=== PATIENT | female | born 1940 | race Caucasian/White ===

== ENCOUNTER 2020-03-17 08:26 | Observation (INO) ==
--- NOTE | 2020-02-17 15:07 | PAT Medication Instructions ---
Medication Instructions Date of Service February 17, 2020 Home Medications Medication Instructions Recorded diclofenac sodium 75 mg 75 mg PO BID PRN #60 tab 10/17/19 tablet,delayed release amlodipine 5 mg-benazepril 20 mg capsule 1 cap PO QAM aspirin 81 mg tablet,delayed release 81 mg PO QAM diclofenac sodium 75 mg tablet,delayed release 75 mg PO BID PRN lactobacillus combination no.9 4 billion cell capsule 4,000 mmu cells PO QPM levothyroxine 88 mcg capsule 88 mcg PO QAM multivitamin 1 tab PO QAM omeprazole 20 mg tablet,delayed release 20 mg PO QAM simvastatin 20 mg tablet 20 mg PO QPM zolpidem 5 mg tablet 2.5 mg PO HS PRN calcium carbonate [Calcium 600] 600 mg PO QAM fish oil-dha-epa 1 dose PO QAM ASK your surgeon for instructions diclofenac sodium 75 mg tablet,delayed release 75 mg PO BID PRN STOP taking 2 weeks before surgery If surgery is within 2 weeks, stop taking as soon as possible. fish oil-dha-epa 1 dose PO QAM DO NOT take the morning of surgery amlodipine 5 mg-benazepril 20 mg capsule 1 cap PO QAM multivitamin 1 tab PO QAM calcium carbonate [Calcium 600] 600 mg PO QAM Take morning of surgery With a small sip of water, OTHERWISE NOTHING TO EAT OR DRINK AFTER MIDNIGHT: aspirin 81 mg tablet,delayed release 81 mg PO QAM levothyroxine 88 mcg capsule 88 mcg PO QAM omeprazole 20 mg tablet,delayed release 20 mg PO QAM Take evening before surgery lactobacillus combination no.9 4 billion cell capsule 4,000 mmu cells PO QPM simvastatin 20 mg tablet 20 mg PO QPM zolpidem 5 mg tablet 2.5 mg PO HS PRN (if needed) Other Notes If you have any questions please call us at [phone] or [phone] or [phone] or [phone]
--- NOTE | 2020-02-18 10:46 | Anesthesiology Consultation ---
Date of Service February 18, 2020 Assessment & Plan (1) Encounter for pre-operative examination: COVID Status: As of 02/17 assessment, patient denies travel to endemic area, known exposure/sick contacts, or symptoms of COVID19. Patient instructed that they and their household members must follow strict social distancing guidelines, wear a mask in public and avoid travel for 14 days prior to surgery. Preoperative COVID19 testing to be completed prior to surgery per surgeon's a rrangements. Patient made aware to self-isolate as much as possible between COVID testing and surgery. Chart Review Chart Review: Acceptable Risk for Surgery (pending chest CT being arranged by surgeon) and Patient seen in Pre Admission Testing Teaching & Discussion Instructed NPO after midnight before surgery, except medications with 15 cc of water. Medication instructions provided according to the PAT guidelines. History Surgery Operation Date: 03/17/20 11:00 Proposed Procedures p Right Total Knee Arthroplasty - Abdelrahman Waddell MD Height/Weight Height: 5 ft 1 in Weight: 80.7 kg Allergies Allergy/AdvReac Type Severity Reaction Status Date / Time pollen extracts Allergy Unknown COUGHING Verified 02/11/20 10:20 SINUS ISSUES Medications Home Medications Medication Instructions Recorded Confirmed Last Taken amlodipine 5 mg-benazepril 20 mg 1 cap PO QAM 10/17/19 02/11/20 Unknown capsule aspirin 81 mg tablet,delayed 81 mg PO QAM 10/17/19 02/11/20 Unknown release diclofenac sodium 75 mg 75 mg PO BID PRN #60 tab 10/17/19 02/11/20 Unknown tablet,delayed release lactobacillus combination no.9 4 4,000 mmu cells PO QPM 10/17/19 02/11/20 Unknown billion cell capsule levothyroxine 88 mcg capsule 88 mcg PO QAM 10/17/19 02/11/20 Unknown multivitamin 1 tab PO QAM 10/17/19 02/11/20 Unknown omeprazole 20 mg tablet,delayed 20 mg PO QAM 10/17/19 02/11/20 Unknown release simvastatin 20 mg tablet 20 mg PO QPM 10/17/19 02/11/20 Unknown zolpidem 5 mg tablet 2.5 mg PO HS PRN tab 10/17/19 02/11/20 Unknown calcium carbonate [Calcium 600] 600 mg PO QAM 02/11/20 02/11/20 Unknown fish oil-dha-epa 1 dose PO QAM 02/11/20 02/11/20 Unknown Past Medical History Medical History Degenerative disc disease, lumbar GERD (gastroesophageal reflux disease) HTN (hypertension) Hyperlipemia Hypothyroidism Low back pain Osteoarthritis Right knee DJD Spinal stenosis of lumbar region Urinary leakage Exercise / Class Metabolic Activity II 4-5 Yardwork/Stairs/Walk up hill (Does stairs at home, just slowly, denies CP or SOB with 1 FOS) Past Family History Family History Other No family history of adverse response to anesthesia Past Surgical History Surgical History History of cholecystectomy History of colonoscopy History of left knee replacement History of salpingo-oophorectomy unilateral Hx of cataract surgery Hx of tonsillectomy Past Anesthesia History No Hx of Anesthesia Complications and No Family Hx of Anesthesia Complications History of PONV No Hx of PONV and No Hx of Motion Sickness Social History Smoking Status: Never smoker Do You Dip or Chew Tobacco: No Hx Alcohol Use: Yes alcohol intake frequency: holidays/special occasions only Hx Substance Use: No substance use type: does not use Review of Systems Pt denies any recent chest pain, shortness of breath, palpitations, fever, URI, or uncontrolled acid reflux. +sinus drainage, chronic x 15 yrs with mild reflexive cough/throat clearing Physical Exam Vital Signs BP: 144/84 P: 81bpm SPO2: 98% RA T: 98.2 F R: 16 ENMT Mouth: + dentition abnormality (missing one) and + dentures (partial upper); no chipped teeth and no loose teeth Thyromental Distance: > or= 3.5 Finger Breadths Mallampati Class: III Mouth / Teeth: 1. missing Neck normal visual inspection; neck extension not limited Respiratory normal respiratory effort Auscultation: lungs clear to auscultation bilaterally Cardiovascular Rate/Rhythm: regular rate and regular rhythm Heart Sounds: no murmur Vessels: no carotid bruit Extremities: no edema Testing Laboratory Results 02/18/20 10:54 02/18/20 12:05 PT 10.9 Seconds (9.0-12.0) 02/18/20 10:54 INR 1.0 (0.9-1.1) 02/18/20 10:54 APTT 29.6 Seconds (21.0-31.0) 02/18/20 10:54 Blood Type O Positive 02/18/20 10:54 Antibody Screen NEGATIVE 02/18/20 10:54 Electrocardiogram Date: 07/23/19 Findings: + NSR @ (66bpm) Chest X-Ray Date: 02/18/20 FINDINGS: No pneumothorax. No pleural effusions. The heart is top normal in size. Mild diffuse interstitial thickening which is likely chronic. Mild emphysema. The questionable 1 cm irregular density within the left lung apex overlying the left scapula. Otherwise, no focal lung consolidations to suggest pneumonia. No evidence for pulmonary edema. IMPRESSION: 1. No acute process within the chest. 2. A questionable 1 cm focal irregular density within the left lung apex. This could be due to the overlying scapula. However, follow-up nonemergent chest CT is recommended to exclude a pulmonary lesion. *Surgeon's office aware, arranging follow-up chest CT.
--- NOTE | 2020-02-18 11:48 | XRay Report ---
XR chest Pre-admission PA/Lat HISTORY: Preop. COMPARISON: None. FINDINGS: No pneumothorax. No pleural effusions. The heart is top normal in size. Mild diffuse inters titial thickening which is likely chronic. Mild emphysema. The questionable 1 cm irregular density wi thin the left lung apex overlying the left scapula. Otherwise, no focal lung consolidations to sugges t pneumonia. No evidence for pulmonary edema. IMPRESSION: 1. No acute process within the chest. 2. A questionable 1 cm focal irregular density within the left lung apex. This could be due to the ov erlying scapula. However, follow-up nonemergent chest CT is recommended to exclude a pulmonary lesion . ACT 112: Positive. There are findings on this exam that require communication between the performing entity and the patient following Patient Test Result Information Act ([place] Act 112) guidelines. Electronically signed by: Valdez Ibarra M.D. 02/18/2020 11:47 AM
[2020-02-18 12:40] LABS: Basophils # (auto) 0.06 K/uL (0-0.2); Basophils % (auto) 0.8 %; Eosinophils # (auto) 0.28 K/uL (0-0.5); Eosinophils % (auto) 3.9 %; Hematocrit (blood only) 36.9 % (37-47); Hemoglobin 12.4 g/dL (12.0-16.0); Immature Granulocytes # (auto) 0.01 K/uL (0.00-0.02); Immature Granulocytes % (auto) 0.1 %; Lymphocytes # (auto) 1.35 K/uL (1.2-3.4); Lymphocytes % (auto) 18.6 %; Mean Corpuscular Hgb Conc 33.6 g/dL (32-36); Mean Corpuscular Volume 89.1 fL (80-100); Mean Platelet Volume 9.1 fL (7.4-10.4); Monocytes % (auto) 8.3 %; Neutrophils # (auto) 4.96 K/uL (1.4-6.5); Neutrophils % (auto) 68.3 %; Platelet Count 331 K/uL (130-400); RDW Coefficient of Variation 14.2 % (11.5-14.5); RDW Standard Deviation 46.8 fL (36.4-46.3); Red Blood Count 4.14 M/uL (4.2-5.4); White Blood Count 7.26 K/uL (4.8-10.8)
[2020-02-18 12:50] LABS: Partial Thromboplastin Ratio 1.1; Partial Thromboplastin Time 29.6 Seconds (21.0-31.0); Prothrombin Time 10.9 Seconds (9.0-12.0)
[2020-02-18 12:53] LABS: BUN Creatinine Ratio 13.2 (10-20); Calcium 8.7 mg/dl (8.5-10.1); Est GFR (African American) 93.6; Est GFR (Non-African American) 80.8; Potassium 4.3 mmol/L (3.5-5.1)
[2020-02-18 13:01] LABS: C Reactive Protein 0.4 mg/dl (0-0.29)
--- NOTE | 2020-03-10 19:36 | History and Physical Report ---
DATE OF ADMISSION: 03/17/2020 CHIEF COMPLAINT: Persistent right knee pain and discomfort. HISTORY OF PRESENT ILLNESS: The patient is a 79-year-old white female who presents for followup and treatment of her right knee primarily. She is now 2 years out from left knee replacement, has done well from this side. She continues to have aches and pains and discomfort in her right knee. Pain is mostly medial. She had shots in her other knee, but they have not helped this knee much at all. She has just been trying to put this off. The more she walks, the more it hurts. She limps more as the day goes on. She has nighttime pain. She is not interested in further conservative care and would like to have her right knee replaced. PAST MEDICAL HISTORY: Significant for, 1. Hypothyroidism. 2. Gastroesophageal reflux disease. 3. Low back pain. PAST SURGICAL HISTORY: Includes, 1. Cholecystectomy. 2. Left knee replacement done on 09/14/2017. 3. Ruptured ectopic in . CURRENT MEDICINES: Include, 1. Amlodipine/benazepril 5/20 once a day. 2. Diclofenac 75 mg. 3. Danielle aspirin. 4. Simvastatin. 5. Omeprazole 20 mg. 6. Levothyroxine 88 mcg a day. 7. Multivitamin. 8. Calcium. 9. Probiotics. SOCIAL HISTORY: Significant for a 79-year-old female. She does not smoke. No significant alcohol intake. Lives in [place]. FAMILY HISTORY: Noncontributory. REVIEW OF HISTORY: Negative for diabetes, neurologic problem, vascular problems or bleeding disorders. Denies any chest pain or shortness of breath. No history of DVT or PE. No known bleeding problems. PHYSICAL EXAMINATION GENERAL: Shows a pleasant elderly female. Looks to be in good health. HEENT: Benign. NECK: Supple, no lymphadenopathy. LUNGS: Clear to auscultation. HEART: Has a regular rate and rhythm. ABDOMEN: Soft, nontender, nondistended. EXTREMITIES: Grossly neurovascularly intact except as follows: Examination of both knees reveals the patient walks independently. Examination of the right knee reveals slight varus alignment. She is tender over the medial joint line and has some bony hypertrophy there. She has got a small knee effusion. Range of motion is 5-120. No instability. She is neurologically intact. Examination of the left knee reveals a well-healed incision. Knee alignment is anatomic. Range of motion 0-120. No instability. X-RAYS: X-rays of the right knee reveal advanced right knee DJD. She has complete loss of her medial joint space. She has got osteophytes medially and laterally. The left knee replacement looks to be in good position. ASSESSMENT: A 79-year-old white female 2 years out from a left knee replacement with advanced right knee degenerative joint disease. She has failed all conservative measures and would like to have her right knee replaced. PLAN: We are going to proceed with right knee replacement. The risks and benefits of this procedure were explained to the patient including but not limited to DVT, PE, , infection, neurological injury, vascular injury, bleeding problem, pain, limited range of motion, stiffness, failure to relieve her symptoms, incomplete relief of symptoms, need for further surgery in the future, fracture, leg length inequality, nerve palsy, etc. The patient understands and desires to proceed. Informed consent was obtained. As far as postoperative pain control, she did not do well with tramadol last time. She would like to try oxycodone. She will likely need some Zofran for some nausea. She is planning to be discharged to home using [facility].
[~2020-03-17 08:26] MED LIST: ACETAMINOPHEN 500 MG TAB PO SCH; BUPIVACAINE 0.5 % 5 MG/1 ML PF 10ML VIAL ONE; BUPIVACAINE LIPOSOME/PF 266 MG, BUPIVACAINE/EPINEPHRINE 50 ML, SODIUM CHLORIDE 0.9% 30 ... INFIL SCH; BUPIVACAINE/EPINEPHRINE 0.25% 1:200,000 30 ML VIAL ONE; DEXAMETHASONE SOD INJ 4 MG/ML VIAL ONE; FAMOTIDINE 20 MG TAB PO SCH; GABAPENTIN 300 MG CAP PO SCH; LR 500ML BOLUS, THEN 15ML/HR IV SCH; LR 60ML/HR IV SCH; METOCLOPRAMIDE HCL 10 MG TABLET PO SCH; MIDAZOLAM HCL 1 MG/ML 2ML VIAL ONE; TRANEXAMIC ACID 1,000 MG **IV Intra-op IV SCH; ceFAZolin 2000MG 2,000 MG/15 ML SYR IV SCH; fentaNYL citrate 100 MCG/2 ML VIAL ONE
--- NOTE | 2020-03-17 08:46 | History & Physical Bridge Note ---
Date of Service March 17, 2020 History & Physical Bridge Note I have examined the patient, reviewed the History & Physical and in the interval since the performance of the History & Physical I have noted the following changes of clinical significance: no changes noted
[2020-03-17] MEDS ORDERED: ATROPINE SULFATE 0.1 MG/ML 10ML SYR IV PRN (10:39)
[2020-03-17] MEDS ORDERED: ONDANSETRON INJ 2 MG/ML 2 ML VIAL IV PRN ×2 (10:39→15:33)
[2020-03-17] MEDS ORDERED: ePHEDrine sulfate 50 MG/ML AMP IV PRN (10:39)
[2020-03-17] MEDS ORDERED: BUPIVACAINE 0.25% 30 ML VIAL ONE (10:48)
[2020-03-17] MEDS ORDERED: EPINEPHrine INJ 1 MG/ML AMP ONE (10:48)
[2020-03-17] MEDS ORDERED: SODIUM CHLORIDE 0.9% PF 50 ML VIAL ONE (10:48)
[2020-03-17] MEDS ORDERED: BACITRACIN INJ 50,000 UNIT VIAL ONE (10:48)
[2020-03-17] MEDS ORDERED: BUPIVACAINE LIPOSOME 1.3% 266 MG/20 ML VIAL ONE (10:48)
[2020-03-17] MEDS ORDERED: PROPOFOL IV EMULSION 10 MG/ML 20 ML VIAL IV ONE (11:06)
[2020-03-17] MEDS ORDERED: PHENYLEPHRINE 100MCG/ML 5ML SYR ONE (11:13)
[2020-03-17] MEDS ORDERED: ePHEDrine sulfate 50 MG/ML SYR ONE (11:13)
--- NOTE | 2020-03-17 12:40 | Post Operative Brief Note ---
PG Immediate Post Op with CF Date of Surgery March 17, 2020 Pre & Post Diagnosis Operation Date: 03/17/20 10:40 Pre-Op Diagnosis: Right Knee Degenerative Joint Disease Post-Op Diagnosis: Right Knee Degenerative Joint Disease I identified the patient and participated in the time-out.: Yes Procedure Operation Date: 03/17/20 10:40 Actual Procedures p Right Total Knee Arthroplasty, Cemented(Right) - Abdelrahman Waddell MD Surgeon Abdelrahman Waddell MD Media Relations Associate Yolanda, [facility] Estimated Blood Loss 50 Findings Consistent with Post-Op Diagnosis Fluids 850 cc Specimens Specimen Description: Permanent Specimen A: Right knee bone and tissue Drains Mcdonald Catheter Anesthesia Type Spinal MAC Complications none Disposition Accompanied Patient To Recovery: No Disposition: Recovery Room
--- NOTE | 2020-03-17 12:53 | Operative Report ---
Post Operative Report Pre & Post Diagnosis Operation Date: 03/17/20 10:40 Pre-Op Diagnosis: Right Knee Degenerative Joint Disease Post-Op Diagnosis: Right Knee Degenerative Joint Disease I identified the patient and participated in the time-out.: Yes Procedure Operation Date: 03/17/20 10:40 Actual Procedures p Right Total Knee Arthroplasty, Cemented(Right) - Abdelrahman Waddell MD Surgeon Abdelrahman Waddell MD Cooky Machine Operator Yolanda, PAC Estimated Blood Loss 50 Findings Consistent with Post-Op Diagnosis Operative findings revealed advanced right knee DJD with extensive grade 4 [id number] disease of the medial and patellofemoral compartments. She did have some grade 4 changes in the lateral compartment but less severe. She had a significant joint effusion with a varus deformity to her knee. She had fairly stiff knee preoperatively with about a 5 to 10 degree flexion contracture and a bend to about 105 degrees maximum. Fluids 850 cc Specimens Right knee sent for pathology. Drains None. Anesthesia Type Spinal MAC Disposition Accompanied Patient To Recovery: No Disposition: Recovery Room Indications Patient is a 80-year-old female said a long history of bilateral knee pain discomfort. She has been through extensive conservative treatment the past. She had her left knee replaced about 2 and half years ago and is done well from this. She continued be limited by right knee pain discomfort describes gotten worse over time. She elected proceed with total knee arthroplasty. Description of Procedure Operative implants consist of: 1. Biomet Vanguard size 62.5 right posterior stabilized femoral component. 2. Biomet size 63 tibial tray. 3. 10 mm posterior stabilized polyethylene insert. 4. 28 x 8 all polypatella. The patient was taken to the operating room identified and placed on the operating table supine position. All contact areas were properly padded. IV antibiotics arrived by anesthesia team. A spinal anesthetic and abductor canal block had been provided in the holding area. Mcdonald catheter was placed in sterile fashion. A right thigh turn was then placed in the right lower extremities and prepped and draped in usual sterile fashion. The right leg was elevated exsanguinated with use of an Esmarch and turn was placed at 300 mmHg. An anterior approach to the right knee was then performed to longitudinal incision centered over the patella. Sharp dissection was got through subcutaneous tissue down the extensor mechanism. A medial parapatellar arthrotomy incision was made. Some subperiosteal dissection was carried out medially. The fat pad was resected from each patella tendon. The lateral patellofemoral ligament was released. Patella was subluxated laterally and the knee was flexed. The osteophytes were taken off the distal femur. The ACL and PCL were then released from the distal femur and the tibia subluxate anteriorly. The external tibial alignment jig was then placed in the interface the tibia and adjusted 14 mm medially. Proximal tibial cut was made to remove about a millimeter or 2 of bone from most efficient aspect the medial tibial plateau. The tibia was then sized to a size 63. Attention drawn the femur. The distal femur was entered with a sharp drop with intramedullary canal was suction. A right 5 degree valgus cutting guide was placed. The distal femoral cut was made to take an additional 3 mm of bone off distal femur. The femur was then sized to a size 62.5. The AP cutting block was pinned parallel to the epicondylar axis which was 4 degrees of external rotation. The anterior cut, anterior chamfer, posterior cut, posterior chamfer cuts were made. The box guide was placed in just slight lateral and the box cut was made. The knee was flexed. The remnants of the medial lateral menisci were excised. The osteophytes were taken off the posterior aspect the femur. A trial femoral component was placed. The tibial tray was pinned in maximum external rotation and the drill and stem punch were used to create the defect in the proximal tibia for the tibial tray. Knee was then trialed and the 10 mm insert fit most appropriately. Attention drawn the patella. Patella was cleaned of all soft tissues. Patella thickness measured 20 mm in thickness and was cut down to 12. Was sized to a size 28 patella. The lug holes were drilled for the 28 patella. The lateral osteophyte was removed. Patella button was placed. Knee was taken through range of motion patella tracked nicely with no thumbs test. Attention then drawn toward placing the permanent components. All trial components were removed. Bone plug was placed in the distal femur limit blood loss put a double batch Palacos G cement was mixed. A Biomet Vanguard size 62.5 right posterior stabilized femoral component, a size 63 tibial tray, a 10 mm posterior stabilized polyethylene insert, and a 28 x 8 all polypatella were then cemented into place. The knee was brought out into full extension until cement hardened. Final cement check was then performed. Pericapsular tissues were injected with a total of 100 cc of combination of 20 cc of Exparel, 30 cc of normal saline, 50 cc of quarter percent Marcaine with epinephrine. The patient did receive 1 g tranexamic acid per the tourniquet was then let down for final tourniquet time of 57 minutes. Hemostasis was assured with the use of electrocautery. The wound was once again irrigated. The extensor mechanism then closed with combination 1 PDS suture #1 Vicryl suture in [id number] fashion. Extensor mechanism checked found to be intact with subcutaneous tissue then closed with 2 Dexon suture in a buried interrupted fashion skin was closed skin raj. Leg was then cleaned and dried a sterile dressing composed Xeroform, 4 x 4's, sterile cast padding, Silvestre bandage were applied. The patient then transferred to the recovery room in stable condition. The patient tolerated procedure well and there were no complications. Randal Guerrero, my physician project construction assistant manager, was present for the entire procedure. His assistance was essential and required for appropriate patient positioning, prepping and draping, surgical exposure, performing the technical details of the operation, placement the implants, closure of the wound, and placement of the sterile bandage. I attest to the content of the Intraoperative Record and any orders documented therein. Any exceptions are noted below.
--- NOTE | 2020-03-17 13:16 | Anesthesiology Progress Note ---
Date of Service March 17, 2020 Anesthesia Post Procedure Vital Signs Vital Signs: Temp Pulse Pulse Resp BP BP Pulse Ox 03/17/20 13:10 88 15 145/63 H 98 03/17/20 13:00 88 12 142/66 H 99 03/17/20 12:50 91 H 12 143/80 H 98 03/17/20 12:46 36.2 C L 94 H 17 154/72 H 97 03/17/20 09:54 36.5 C 70 18 129/66 95 03/17/20 08:45 36.8 C 88 18 158/77 H 96 Pain Intensity Lower Back: Pain Intensity: 2 Right Knee: Pain Intensity: 1 Transfer of Care Handoff Completed per policy Notes Mental Status: alert / awake / arousable Patient Amnestic to Procedure: Yes Nausea / Vomiting: adequately controlled Pain: adequately controlled Airway Patency, RR, SpO2: stable & adequate BP & HR: stable & adequate Hydration State: stable & adequate Neuraxial Anesthesia: was administered and sensory block is resolving Anesthetic Complications: no major complications apparent
[2020-03-17] MEDS: fentaNYL citrate 100 MCG/2 ML VIAL IV PRN ×2 (13:23→14:23)
--- NOTE | 2020-03-17 14:00 | XRay Report ---
XR knee RT 1 or 2V routine CLINICAL HISTORY: Surgical Post Op COMPARISON: X-ray study dated 10/31/2019 DISCUSSION: There are postsurgical changes of a total right knee arthroplasty and patellar resurfacin g. There are overlying skin raj. There is gas within the joint consistent with recent surgery. Th e femoral tibial components appear well seated. IMPRESSION: Postsurgical changes of a total right knee arthroplasty and patellar resurfacing. ACT 112: Negative or not required by law. Electronically signed by: Andreas Jones M.D. 03/17/2020 1:58 PM
[2020-03-17] MEDS ORDERED: NALOXONE HCL 0.4 MG/1 ML VIAL/CARP IV PRN (15:33)
[2020-03-17] MEDS ORDERED: bisacodyL 10 MG SUPP PR PRN (15:33)
[2020-03-17] MEDS ORDERED: ALUMINUM/MAGNESIUM SUSP 30 ML UDC PO PRN (15:33)
[2020-03-17] MEDS ORDERED: MAGNESIUM HYDROXIDE SUSP 30 ML UDC PO PRN (15:33)
[2020-03-17] MEDS ORDERED: HYDROmorphone INJ 0.5 MG/0.5 ML SYR IV PRN (15:33)
[2020-03-17] MEDS ORDERED: METOCLOPRAMIDE HCL INJ 5 MG/ML 2 ML VIAL IV PRN (15:33)
[2020-03-17] MEDS: ACETAMINOPHEN 500 MG TAB PO SCH ×2 (16:35→21:02)
[2020-03-17] MEDS: FERROUS GLUCONATE 324 MG TAB PO SCH (16:36)
[2020-03-17] MEDS: ASCORBIC ACID 500 MG TAB PO SCH (16:36)
[2020-03-17] MEDS: SODIUM CHLORIDE 0.9% 1000ML 1,000 ML IV SCH (16:38)
[2020-03-17] MEDS: KETOROLAC TROMETHAMINE 15 MG/ML VIAL IV SCH (18:11)
--- NOTE | 2020-03-17 18:21 | Progress Notes ---
DATE: 03/17/2020 SUBJECTIVE: A 80-year-old white female postop from a right knee replacement. She is doing well. Pain is controlled. No chest pain or shortness of breath. Not feeling dizzy or lightheaded. OBJECTIVE: VITAL SIGNS: Temperature 36.6. Vital signs stable. GENERAL: Shows a pleasant elderly female. She is sitting up in bed and looks quite comfortable. LUNGS: Clear to auscultation. HEART: Has a regular rate and rhythm. ABDOMEN: Soft, nontender, nondistended. EXTREMITIES: Grossly neurovascularly intact except as follows: Examination of the right lower extremity reveals the leg to be well aligned. Her dressing is clean, dry and intact. She can dorsiflex and plantarflex her foot appropriately. She has got brisk refill and a good distal pulse. X-RAYS: X-rays of the right knee from recovery room are reviewed. It shows a cemented posterior stabilized total knee arthroplasty. Components looked to be in good position. No signs of problems. ASSESSMENT: A 80-year-old white female postoperative from a right knee replacement, doing well. Her pain is controlled. She is neurologically intact. PLAN: 1. DVT prophylaxis including thigh-high TEDs, SCDs, and aspirin twice a day. 2. PT/OT. Weight bear as tolerated. Right total knee protocol. 3. Pain control, doing well with current pain regimen. 4. IV antibiotics x24 hours. 5. Disposition: She is hoping to be discharged to home with some home health once adequately recovered and medically stable.
[2020-03-17] MEDS ORDERED: TRANEXAMIC ACID / 0.7% NACL 1,000 MG/100 ML BAG IV SCH (19:00)
[2020-03-17] MEDS: ceFAZolin 2000MG 2,000 MG/15 ML SYR IV SCH (20:54)
[2020-03-17] MEDS: DOCUSATE SODIUM 100 MG CAP PO SCH (20:56)
[2020-03-17] MEDS: ADVANCED PROBIOTIC 1250 MG CAPSULE PO SCH (20:56)
[2020-03-17] MEDS: ASPIRIN 81 MG ECTAB PO SCH (20:56)
[2020-03-17] MEDS: SENNA 8.6 MG TAB PO SCH (20:57)
[2020-03-17] MEDS: SIMVASTATIN 20 MG TAB PO SCH (20:57)
[2020-03-17] MEDS: TAPENTADOL HCL ER 50 MG TABCR PO SCH (21:01)
[2020-03-17] MEDS: ZOLPIDEM TARTRATE 5 MG TAB PO PRN (22:15)
[2020-03-18] MEDS: KETOROLAC TROMETHAMINE 15 MG/ML VIAL IV SCH ×5 (00:21→23:35)
[2020-03-18] MEDS: SODIUM CHLORIDE 0.9% 1000ML 1,000 ML IV SCH (02:28)
[2020-03-18] MEDS: ceFAZolin 2000MG 2,000 MG/15 ML SYR IV SCH (04:34)
[2020-03-18] MEDS: ACETAMINOPHEN 500 MG TAB PO SCH ×3 (06:00→20:30)
[2020-03-18] MEDS: LEVOTHYROXINE SODIUM 88 MCG TABLET PO SCH (06:02)
[2020-03-18 06:36] LABS: Hematocrit (blood only) 28.8 % (37-47); Hemoglobin 9.5 g/dL (12.0-16.0); Mean Corpuscular Hemoglobin 28.6 pg (25-34); Mean Corpuscular Volume 86.7 fL (80-100); Mean Platelet Volume 9.2 fL (7.4-10.4); Platelet Count 323 K/uL (130-400); RDW Coefficient of Variation 13.8 % (11.5-14.5); RDW Standard Deviation 44.3 fL (36.4-46.3); Red Blood Count 3.32 M/uL (4.2-5.4); White Blood Count 14.92 K/uL (4.8-10.8)
[2020-03-18 07:00] LABS: BUN Creatinine Ratio 15.9 (10-20); Calcium 8.5 mg/dl (8.5-10.1); Creatinine Clr Calc Pharmacy 60.3 ml/min; Est GFR (African American) 89.9; Est GFR (Non-African American) 77.6
[2020-03-18] MEDS: MULTIVITAMIN TAB PO SCH (08:56)
[2020-03-18] MEDS: ASCORBIC ACID 500 MG TAB PO SCH ×2 (08:56→18:01)
[2020-03-18] MEDS: DOCUSATE SODIUM 100 MG CAP PO SCH ×2 (08:56→20:31)
[2020-03-18] MEDS: ASPIRIN 81 MG ECTAB PO SCH ×2 (08:56→20:32)
[2020-03-18] MEDS: PANTOprazole 40 MG TAB PO SCH (08:56)
[2020-03-18] MEDS: FERROUS GLUCONATE 324 MG TAB PO SCH ×2 (08:56→18:00)
[2020-03-18] MEDS: OMEGA-3 (PURIFIED FISH OIL) 1 GM CAP PO SCH (08:56)
[2020-03-18] MEDS: amLODIPine BESYLATE 5 MG TAB PO SCH (08:57)
[2020-03-18] MEDS: CALCIUM 600MG + VIT D 400 IU TAB PO SCH (08:57)
[2020-03-18] MEDS: ENALAPRIL MALEATE 10 MG TAB PO SCH (08:57)
[2020-03-18] MEDS ORDERED: MULTIVITAMIN TAB PO SCH (09:00)
[2020-03-18] MEDS: TAPENTADOL HCL ER 50 MG TABCR PO SCH ×2 (09:04→20:30)
[2020-03-18] MEDS: oxyCODONE HCL IR 5 MG TAB (IMMEDIATE RELEASE) PO PRN ×2 (12:04→18:15)
[2020-03-18] MEDS: ADVANCED PROBIOTIC 1250 MG CAPSULE PO SCH (20:31)
[2020-03-18] MEDS: SIMVASTATIN 20 MG TAB PO SCH (20:31)
[2020-03-18] MEDS: SENNA 8.6 MG TAB PO SCH (20:32)
--- NOTE | 2020-03-18 20:51 | Progress Notes ---
DATE: 03/18/2020 SUBJECTIVE: A 80-year-old white female postop day 1 from a right knee replacement. She is doing pretty well. Pain has been controlled. Therapy went reasonably well. She is not having much nausea like she has had previously. OBJECTIVE: VITAL SIGNS: Temperature 36.5. Vital signs stable. GENERAL: Shows a pleasant elderly female. She is sitting up in bed, looks pretty comfortable. EXTREMITIES: Examination of the right leg reveals the leg to be well aligned. Dressing is clean, dry and intact. She can do a straight leg raise with some assistance. She can dorsiflex and plantarflex her foot appropriately. LABORATORY DATA: Hemoglobin 9.5. Hematocrit 28.8. White cell count 14.92. Electrolytes are stable. ASSESSMENT: A 80-year-old white female postoperative day 1 from a right knee replacement, doing pretty well. Pain is controlled. She is anemic, but without symptoms. White cell count is elevated, likely related to stress. There are no signs of any infection. PLAN: 1. DVT prophylaxis including thigh-high TEDs, SCDs, and aspirin twice a day. 2. PT/OT. Weight bear as tolerated. Right total knee protocol. 3. Pain control, doing okay with current pain regimen. 4. Disposition: Plan to discharge to home with some home health once adequately recovered and medically stable.
[2020-03-18] MEDS: ZOLPIDEM TARTRATE 5 MG TAB PO PRN (22:41)
[2020-03-19] MEDS: LEVOTHYROXINE SODIUM 88 MCG TABLET PO SCH (05:34)
[2020-03-19] MEDS: ACETAMINOPHEN 500 MG TAB PO SCH (05:34)
[2020-03-19] MEDS: KETOROLAC TROMETHAMINE 15 MG/ML VIAL IV SCH (05:34)
[2020-03-19] MEDS: CALCIUM 600MG + VIT D 400 IU TAB PO SCH (08:09)
[2020-03-19] MEDS: DOCUSATE SODIUM 100 MG CAP PO SCH (08:09)
[2020-03-19] MEDS: MULTIVITAMIN TAB PO SCH (08:10)
[2020-03-19] MEDS: FERROUS GLUCONATE 324 MG TAB PO SCH (08:10)
[2020-03-19] MEDS: ASCORBIC ACID 500 MG TAB PO SCH (08:10)
[2020-03-19] MEDS: ENALAPRIL MALEATE 10 MG TAB PO SCH (08:11)
[2020-03-19] MEDS: OMEGA-3 (PURIFIED FISH OIL) 1 GM CAP PO SCH (08:12)
[2020-03-19] MEDS: ASPIRIN 81 MG ECTAB PO SCH (08:12)
[2020-03-19] MEDS: PANTOprazole 40 MG TAB PO SCH (08:12)
[2020-03-19] MEDS: amLODIPine BESYLATE 5 MG TAB PO SCH (08:12)
[2020-03-19] MEDS: TAPENTADOL HCL ER 50 MG TABCR PO SCH (08:16)
--- NOTE | 2020-03-19 20:14 | Progress Notes ---
DATE: 03/19/2020 SUBJECTIVE: A 80-year-old white female postop day 2 from right knee replacement. She is doing well. Pain is controlled. A little bit more painful than yesterday. Not really having any nausea. No chest pain or shortness of breath. Not feeling dizzy or lightheaded. OBJECTIVE: VITAL SIGNS: Temperature is 36.6. Vital signs stable. GENERAL: Shows a pleasant elderly female. She is sitting up in bed, looks pretty comfortable when I visited her this afternoon. EXTREMITIES: Examination of the right leg reveals the leg to be well aligned. Dressing is clean, dry and intact. She has a trace bit of bloody drainage. She can dorsiflex and plantarflex her foot appropriately. She is neurologically intact. ASSESSMENT: A 80-year-old white female postoperative day 2 from right knee replacement, doing well. Pain is controlled. PLAN: 1. DVT prophylaxis including thigh-high TEDs, SCDs, and aspirin twice a day. 2. PT/OT. Weight bear as tolerated. Right total knee protocol. 3. Pain control, doing okay with current pain regimen. We will send her home with some Zofran as she has had nausea in the past. 4. Disposition: Plan to discharge to home with some home health today.
--- NOTE | 2020-03-23 19:19 | Discharge Summary ---
Date of Service March 23, 2020 Admission HPI Per Admitting Provider Documented in the H & P Admission Exam (Per Admitting) Constitutional Documented in the H & P Discharge Data Consultations 03/17/20 15:33 Consult Case Management - Discharge Planning Routine Procedures Performed Operation Date: 03/17/20 10:40 Actual Procedures p Right Total Knee Arthroplasty, Cemented(Right) - Abdelrahman Waddell MD Hospital Course (1) Status post total right knee replacement: This patient is a 80 year old female admitted on 03/17/20 and underwent total knee arthroplasty. She tolerated the procedure well and there were no complications. Transferred to the PACU post op and later to the orthopedic floor for further care. She was given ancef for antibiotic prophylaxis. She was also given SHREYA stockings, SCDs, and aspirin for DVT prophylaxis. Hemoglobin, hematocrit, and vital signs were monitored during her hospital stay and remained stable. Did not require any blood transfusions. There were no complications during her hospital stay. By post op day #2 the patient was tolerating a regular diet, pain was reasonably controlled with oral pain medicine, and she was participating in physical therapy. On post op day #2 the patient was discharged home and set up with home health care. She was given printed discharge instructions including prescriptions for extra strength tylenol, aspirin, iron supplement, zofran, and oxycodone. Continue physical therapy, weight bearing as tolerated. Continue SHREYA stockings. Follow up approximately 2 weeks post op or sooner if there are problems or concerns. Coding Level of Care Code None Diagnoses Status post total right knee replacement Z96.651
== END 2020-03-19 11:11 | disposition home health service (06) ==
LOC: ASU 08:26 → 3E 08:26